=== PATIENT | female | born 1935 | race Caucasian/White ===

== ENCOUNTER 2023-06-16 10:24 | Day surgery (SDC) | payer OTHER ==
[~2023-06-16 10:24] MED LIST: DEXAMETHASONE 4 MG TABLET (FP) PO ONE; GRANISETRON HCL 1 MG TABLET PO ONE
[2023-06-16] MEDS ORDERED: BORTEZOMIB 2.5 MG/ML SUB-Q INJECTION SQ ONE (10:30)
[2023-06-16 11:09] LABS: EOS % 3.6 % (0-4.5); HEMOGLOBIN 10.2 GM/dL (10.7-15.3); LYMPH % 16.9 % (8-40); MCH 31.6 pg (25.7-33.7); MCHC 32.8 g/dl (32.0-36.0); MEAN CELL VOLUME 96.3 fl (80-96); MEAN PLT VOLUME 7.9 fl (7.5-11.1); MONO % 7.6 % (3.8-10.2); NEUT % 70.9 % (42.8-82.8); PLATELET COUNT 177 10^3/uL (134-434); RBC 3.22 M/mm3 (3.60-5.2); RDW 15.1 % (11.6-15.6); WHITE BLOOD COUNT 4.8 K/mm3 (4.0-10.0)
[2023-06-16 11:37] LABS: POTASSIUM 4.8 mmol/L (3.5-5.1)
[2023-06-16 11:39] LABS: BLOOD UREA NITROGEN 82.7 mg/dL (7-18); CALCIUM 7.9 mg/dL (8.5-10.1)
[2023-06-16 11:40] LABS: ALBUMIN 2.7 g/dl (3.4-5.0)
[2023-06-16 11:42] LABS: BILIRUBIN,DIRECT 0.1 mg/dL (0.0-0.2)
[2023-06-16 11:43] LABS: CREATININE 5.2 mg/dL (0.55-1.3)
[2023-06-16 11:44] LABS: BILIRUBIN,TOTAL 0.4 mg/dL (0.2-1); TOT PROT 5.7 g/dl (6.4-8.2)
[2023-06-16 16:21] VITALS: BP 150/80; PULSE 80; RESP 18; TEMP 97.7
[2023-06-18 16:08] LABS: FREE KAPPA,SERUM 94.2 mg/L (3.3-19.4)
== END 2023-06-16 13:00 | disposition home or self-care (01) ==
LOC: JONCCHEMO 10:24 → J7W 10:25 → JONCCHEMO 13:00
PROVIDERS: ATTEND Internal Medicine Hematology & Oncology
DX: Z51.11 Encounter for antineoplastic chemotherapy (principal); E85.89 Other amyloidosis
CPT/HCPCS: 36415; 80048; 80076; 82784; 83883; 84155; 84165; 85025; 96401; J9041

== ENCOUNTER 2023-06-30 10:37 | Day surgery (SDC) | payer OTHER ==
[~2023-06-30 10:37] MED LIST changes: +BORTEZOMIB 2.5 MG/ML SUB-Q INJECTION SQ ONE
[2023-06-30 11:45] LABS: BASO % 0.4 % (0-2.0); EOS % 0.7 % (0-4.5); HEMOGLOBIN 10.6 GM/dL (10.7-15.3); LYMPH % 13.8 % (8-40); MCH 31.2 pg (25.7-33.7); MEAN CELL VOLUME 97.5 fl (80-96); MEAN PLT VOLUME 8.4 fl (7.5-11.1); MONO % 5.6 % (3.8-10.2); NEUT % 79.5 % (42.8-82.8); PLATELET COUNT 167 10^3/uL (134-434); RBC 3.39 M/mm3 (3.60-5.2); RDW 14.6 % (11.6-15.6); WHITE BLOOD COUNT 5.7 K/mm3 (4.0-10.0)
[2023-06-30 12:04] LABS: POTASSIUM 5.3 mmol/L (3.5-5.1)
[2023-06-30 12:06] LABS: ALBUMIN 2.4 g/dl (3.4-5.0); BLOOD UREA NITROGEN 77.1 mg/dL (7-18); CALCIUM 7.7 mg/dL (8.5-10.1)
[2023-06-30 12:09] LABS: BILIRUBIN,DIRECT 0.1 mg/dL (0.0-0.2); CREATININE 5.3 mg/dL (0.55-1.3)
[2023-06-30 12:11] LABS: BILIRUBIN,TOTAL 0.2 mg/dL (0.2-1)
[2023-06-30 18:06] VITALS: BP 149/78; PULSE 80; RESP 20; TEMP 97.5
[2023-07-03 16:09] LABS: FREE KAPPA,SERUM 58.5 mg/L (3.3-19.4)
== END 2023-06-30 13:40 | disposition home or self-care (01) ==
LOC: JONCCHEMO 10:37 → J7W 10:37 → JONCCHEMO 13:40
PROVIDERS: ATTEND Internal Medicine Hematology & Oncology
DX: Z51.11 Encounter for antineoplastic chemotherapy (principal); E85.81 Light chain (AL) amyloidosis; D47.2 Monoclonal gammopathy
CPT/HCPCS: 36415; 80048; 80076; 82784; 83883; 84155; 84165; 85025; 96401; J9041